=== PATIENT | female | born 1975 | race American Indian/Alaskan Native ===

== ENCOUNTER 2017-08-16 15:56 | Emergency (ER) | payer SELFPAY ==
[2017-08-16 16:32] VITALS: BP 105/63
[2017-08-16 16:59] LABS: Basophils % (Auto) 0.4 % (0.0-1.8); Eosinophils % (Auto) 0.3 % (0.0-4.3); Hematocrit 39.8 % (30.3-42.9); Hemoglobin 12.9 gm/dl (10.1-14.3); Lymphocytes % (Auto) 18.7 % (13.4-35.0); Mean Corpuscular HGB Conc 32 % (30-34); Mean Corpuscular Hemoglobin 30 pg (28-32); Mean Corpuscular Volume 93 fl (79-97); Monocytes # (Auto) 0.3 K/mm3 (0.0-0.8); Monocytes % (Auto) 4.9 % (0.0-7.3); Platelet Count 157 K/mm3 (140-440); Red Blood Count 4.27 M/mm3 (3.65-5.03); Red Cell Distribution Width 14.9 % (13.2-15.2)
[2017-08-16 17:18] LABS: Alanine Aminotransferase 8 units/L (7-56); Albumin 4.2 g/dL (3.9-5); BUN/Creatinine Ratio 20; Blood Urea Nitrogen 14 mg/dL (7-17); Hemolysis Index 25
[2017-08-16 18:03] LABS: Bilirubin,Urine NEG (Negative); Blood,Urine NEG (Negative); Color,Urine Yellow (Yellow); Mucus,Urine FEW /HPF; Protein,Urine <15 mg/dL mg/dL (Negative); Urobilinogen,Urine < 2.0 mg/dL (<2.0)
[2017-08-17] MEDS ORDERED: TORADOL ONE (02:42)
[2017-08-17] MEDS: TORADOL IM ONE (03:05)
--- NOTE | 2017-08-17 03:27 | Emergency Department Report ---
ED Female HPI - General Chief complaint: Vaginal Bleeding Stated complaint: ODOR IN URINE Time Seen by Provider: 08/17/17 02:46 Source: patient Mode of arrival: Ambulatory Limitations: No Limitations - History of Present Illness Initial comments: 42-year-old female with a past medical history of HIV (undetectable viral load) , mitral valve prolapse, and partial hyste[facility] in [facility] complaining of malodorous bloody vaginal discharge since August 15. Patient states bleeding is mild and described as spotting and noticed primarily when wiping. Just complains of left flank pain. She denies nausea, vomiting, or fever although triage mentions episode of vomiting yesterday. Pt states she is not currently sexually active. Currently staying in [facility] - Related Data Previous Rx's Medication Instructions Recorded Last Taken Type metroNIDAZOLE [Flagyl] 500 mg PO Q8HR #20 tablet 08/17/17 Unknown Rx traMADol [Ultram 50 MG tab] 50 mg PO Q6HR PRN #20 tablet 08/17/17 Unknown Rx Allergies Allergy/AdvReac Type Severity Reaction Status Date / Time aspirin Allergy Bleeding Verified 08/16/17 16:32 ED Review of Systems ROS: Stated complaint: ODOR IN URINE Other details as noted in HPI Comment: All other systems reviewed and negative ED Past Medical Hx - Past Medical History Hx HIV: Yes Additional medical history: Mitral valve prolapse procedure, - Surgical History Past Surgical History?: Yes Additional Surgical History: partial hysterectomy in 01/2013 - Social History Smoking Status: Never Smoker Substance Use Type: Alcohol - Medications Home Medications: Home Medications Medication Instructions Recorded Confirmed Last Taken Type metroNIDAZOLE [Flagyl] 500 mg PO Q8HR #20 tablet 08/17/17 Unknown Rx traMADol [Ultram 50 MG tab] 50 mg PO Q6HR PRN #20 tablet 08/17/17 Unknown Rx ED Physical Exam - General Limitations: No Limitations - Other Other exam information: General: No limitations, patient is alert in no acute distress Head exam: Atraumatic, normocephalic Eyes exam: Normal appearance, pupils equal reactive to light, extraocular movements intact ENT: Moist mucous membrane, normal oropharynx Neck exam: Normal inspection, full range of motion, no meningismus nontender Respiratory exam: Clear to auscultation bilateral, no wheezes, rales, crackles Cardiovascular: Normal rate and rhythm, normal heart sounds Abdomen: Soft, mild left flank tenderness, nondistended, no rebound or guarding : No external lesions, very minimal brown discharge in volts with fishy odor Extremity: Full range of motion normal inspection no deformity Back: Normal Inspection, full range of motion, no tenderness Neurologic: Alert, oriented x3, cranial nerves intact, no motor or sensory deficit Psychiatric: normal affect, normal mood Skin: Warm, dry, intact ED Course Vital Signs 08/16/17 16:17 Temperature 98.5 F Pulse Rate 61 Respiratory 16 Rate Blood Pressure 105/63 O2 Sat by Pulse 99 Oximetry ED Medical Decision Making - Lab Data Result diagrams: 08/16/17 16:36 08/16/17 16:36 Lab Results 08/16/17 08/16/17 08/16/17 Range/Units 16:36 16:36 16:36 WBC 5.5 (4.5-11.0) K/mm3 RBC 4.27 (3.65-5.03) M/mm3 Hgb 12.9 (10.1-14.3) gm/dl Hct 39.8 (30.3-42.9) % MCV 93 (79-97) fl MCH 30 (28-32) pg MCHC 32 (30-34) % RDW 14.9 (13.2-15.2) % Plt Count 157 (140-440) K/mm3 Lymph % (Auto) 18.7 (13.4-35.0) % [place] % (Auto) 4.9 (0.0-7.3) % Eos % (Auto) 0.3 (0.0-4.3) % Baso % (Auto) 0.4 (0.0-1.8) % Lymph # 1.0 L (1.2-5.4) K/mm3 [place] # 0.3 (0.0-0.8) K/mm3 Eos # 0.0 (0.0-0.4) K/mm3 Baso # 0.0 (0.0-0.1) K/mm3 Seg Neutrophils % 75.7 H (40.0-70.0) % Seg Neutrophils # 4.1 (1.8-7.7) K/mm3 Sodium 137 (137-145) mmol/L Potassium 3.8 (3.6-5.0) mmol/L Chloride 97.4 L (98-107) mmol/L Carbon Dioxide 25 (22-30) mmol/L Anion Gap 18 mmol/L BUN 14 (7-17) mg/dL Creatinine 0.7 (0.7-1.2) mg/dL Estimated GFR > 60 ml/min BUN/Creatinine Ratio 20 % Glucose 117 H (65-100) mg/dL Calcium 9.0 (8.4-10.2) mg/dL Total Bilirubin 0.30 (0.1-1.2) mg/dL AST 17 (5-40) units/L ALT 8 (7-56) units/L Alkaline Phosphatase 55 (35-129) units/L Total Protein 8.2 (6.3-8.2) g/dL Albumin 4.2 (3.9-5) g/dL Albumin/Globulin Ratio 1.1 % HCG, Qual Negative (Negative) Urine Color (Yellow) Urine Turbidity (Clear) Urine pH (5.0-7.0) Ur Specific [place] (1.003-1.030) Urine Protein (Negative) mg/dL Urine Glucose (UA) (Negative) mg/dL Urine Ketones (Negative) mg/dL Urine Blood (Negative) Urine Nitrite (Negative) Urine Bilirubin (Negative) Urine Urobilinogen (<2.0) mg/dL Ur Leukocyte Esterase (Negative) Urine WBC (Auto) (0.0-6.0) /HPF Urine RBC (Auto) (0.0-6.0) /HPF U Epithel Cells (Auto) (0-13.0) /HPF Urine Mucus /HPF //18 Range/Units 17:38 WBC (4.5-11.0) K/mm3 RBC (3.65-5.03) M/mm3 Hgb (10.1-14.3) gm/dl Hct (30.3-42.9) % MCV (79-97) fl MCH (28-32) pg MCHC (30-34) % RDW (13.2-15.2) % Plt Count (140-440) K/mm3 Lymph % (Auto) (13.4-35.0) % [place] % (Auto) (0.0-7.3) % Eos % (Auto) (0.0-4.3) % Baso % (Auto) (0.0-1.8) % Lymph # (1.2-5.4) K/mm3 [place] # (0.0-0.8) K/mm3 Eos # (0.0-0.4) K/mm3 Baso # (0.0-0.1) K/mm3 Seg Neutrophils % (40.0-70.0) % Seg Neutrophils # (1.8-7.7) K/mm3 Sodium (137-145) mmol/L Potassium (3.6-5.0) mmol/L Chloride (98-107) mmol/L Carbon Dioxide (22-30) mmol/L Anion Gap mmol/L BUN (7-17) mg/dL Creatinine (0.7-1.2) mg/dL Estimated GFR ml/min BUN/Creatinine Ratio % Glucose (65-100) mg/dL Calcium (8.4-10.2) mg/dL Total Bilirubin (0.1-1.2) mg/dL AST (5-40) units/L ALT (7-56) units/L Alkaline Phosphatase (35-129) units/L Total Protein (6.3-8.2) g/dL Albumin (3.9-5) g/dL Albumin/Globulin Ratio % HCG, Qual (Negative) Urine Color Yellow (Yellow) Urine Turbidity Clear (Clear) Urine pH 6.0 (5.0-7.0) Ur Specific [place] 1.020 (1.003-1.030) Urine Protein <15 mg/dl (Negative) mg/dL Urine Glucose (UA) Neg (Negative) mg/dL Urine Ketones Neg (Negative) mg/dL Urine Blood Neg (Negative) Urine Nitrite Neg (Negative) Urine Bilirubin Neg (Negative) Urine Urobilinogen < 2.0 (<2.0) mg/dL Ur Leukocyte Esterase Neg (Negative) Urine WBC (Auto) 1.0 (0.0-6.0) /HPF Urine RBC (Auto) 8.0 (0.0-6.0) /HPF U Epithel Cells (Auto) 3.0 (0-13.0) /HPF Urine Mucus Few /HPF - Radiology Data Radiology results: report reviewed US Pelvic/transvag IMPRESSION: No focal fluid or other abnormality identified in association with the patient's vaginal cuff status post hysterectomy. Consider additional imaging for worsening/persistent symptoms. IMPRESSION: Patient status post hysterectomy. Ovaries are better demonstrated on transvaginal ultrasound of the same date. - Medical Decision Making Patient's wet prep positive for bacterial vaginosis and therefore patient will be treated. Gonorrhea and chlamydia test are pending. Ultrasound does not reveal any significant abnormality and patient is status post hysterectomy. Outpatient [facility] follow-up will be encouraged - Differential Diagnosis cervicitis, vaginitis, cancer Critical Care Time: No Critical care attestation.: If time is entered above; I have spent that time in minutes in the direct care of this critically ill patient, excluding procedure time. ED Disposition Clinical Impression: Bacterial vaginosis, HIV (human immunodeficiency virus infection) Disposition: TO HOME OR SELFCARE Is pt being admited?: No Does the pt Need Aspirin: No Condition: Stable Instructions: Bacterial Vaginosis (ED) Additional Instructions: .Take the medication as prescribed. Follow-up with [facility]. Return is symptoms worsen.Your gonorrhea and chlamydia tests are pending and take approximately 3- 4 days result. You may obtain results in medical records with a photo ID. You may also obtain results through the follow-up doctor office via medical record request Prescriptions: metroNIDAZOLE [Flagyl] 500 mg PO Q8HR #20 tablet traMADol [Ultram 50 MG tab] 50 mg PO Q6HR PRN #20 tablet PRN Reason: Pain Referrals: SHRAVAN RUSSELL MD [Staff Physician] - 3-5 Days ([facility]) Forms: STI Treatment and Prevention, Work/School Release Form(ED) Time of Disposition: 05:02
--- NOTE | 2017-08-17 04:25 | Ultrasound Report ---
FINAL REPORT EXAM: US PELVIC COMPLETE HISTORY: vag bleeding/spotting hx of hysterectomy COMPARISONS: None. FINDINGS: Transabdominal grayscale pelvic ultrasound Patient is status post hysterectomy. The imaged portion of the urinary bladder is grossly unremarkable. Ovaries are better demonstrated on transvaginal ultrasound of the same date. IMPRESSION: Patient status post hysterectomy. Ovaries are better demonstrated on transvaginal ultrasound of the same date.
--- NOTE | 2017-08-17 04:27 | Ultrasound Report ---
FINAL REPORT EXAM: US TRANSVAGINAL HISTORY: vag bleeding/spotting hx of hysterectomy COMPARISONS: None. FINDINGS: Transvaginal grayscale and color Doppler pelvic ultrasound Patient is status post hysterectomy. No fluid or other focal abnormality identified in association with the vaginal cuff region. The right ovary measures 1.4 x 0.8 x 1.7 cm and demonstrates normal echotexture. The left ovary measures 3 x 2.7 x 2.5 cm and contains a 2.3 centimeter anechoic dominant follicle/simple cyst. IMPRESSION: No focal fluid or other abnormality identified in association with the patient's vaginal cuff status post hysterectomy. Consider additional imaging for worsening/persistent symptoms.
[2017-08-17] MEDS: FLAGYL PO ONE (05:07)
== END 2017-08-17 05:30 | disposition home or self-care (01) ==
LOC: ED 15:56
DX: N76.0 Acute vaginitis (principal)
CPT/HCPCS: 36415; 76830; 76856; 80053; 81001; 84703; 85025; 87210; 87591; 96372; 99284; J1885